=== PATIENT | male | born 1965 | race Caucasian/White ===

== ENCOUNTER 2016-11-22 13:56 | Outpatient (CLI) ==
--- NOTE | 2016-11-22 14:39 | US ---
EXAM: ULTRASOUND LOWER EXTREMITY VENOUS DOPPLER EXAM HISTORY: Left leg swelling. FINDINGS: Left lower extremity venous Doppler exam. Real time melendez-scale, Doppler spectral analysis and color-flow Doppler imaging performed. The veins targeted for evaluation include the common fem oral, greater saphenous, profundus, femoral, popliteal, peroneal, anterior tibial and posterior tibi al. The evaluated veins demonstrated normal spontaneous flow and compression without evidence of t hrombosis. No venous reflux. IMPRESSION: No venous thrombosis identified within the areas evaluated.
== END 2016-11-22 13:57 | disposition home or self-care (01) ==
LOC: RAD 13:56
DX: M79.89 Other specified soft tissue disorders (principal)

== ENCOUNTER 2016-11-27 07:42 | Outpatient (CLI) ==
[2016-11-27 08:11] LABS: CREATININE 1.2 mg/dL (0.60-1.10)
--- NOTE | 2016-11-27 09:14 | CT ---
EXAM: CT abdomen pelvis with and without contrast HISTORY: Edema and intra-abdominal or pelvic swelling COMPARISON: 03/26/2012 TECHNIQUE: CT abdomen pelvis performed with and without intravenous contrast. Coronal and sagittal reformatted images obtained. FINDINGS: There is bibasilar ground-glass that is greatest in the left lower lobe, likely represent ing pneumonitis. Granulomatous calcification lower chest. No free air. No acute abnormalities of the bones. Degenerative change in the spine. The heart normal in size. Sub centimeter hypodensity i n the liver, too small to characterize. Liver otherwise unremarkable. The gallbladder appears norm al. Pancreas appears normal. Granulomatous calcification in the spleen. Spleen otherwise appears normal. Adrenals appear normal. Kidneys appear normal. Bladder unremarkable. Aorta normal in emily iber. Mild atherosclerosis. No lymphadenopathy or ascites. Small fat-containing umbilical hernia. Small moderate right fat-containing inguinal hernia. Prostate normal in size. Stomach appears nor mal. No dilated loops small bowel. Appendix appears normal. Colon unremarkable. No inflammatory stranding identified in the abdomen pelvis. IMPRESSION: 1. No acute inflammatory process identified in the abdomen or pelvis. 2. Bibasilar ground-glass, likely infectious/inflammatory pneumonitis.
== END 2016-11-27 07:43 ==
LOC: RAD 07:42
DX: R60.9 Edema, unspecified (principal); R19.00 Intra-abdominal and pelvic swelling, mass and lump, unspecified site
CPT/HCPCS: 36415; 82565

== ENCOUNTER 2017-05-08 12:55 | Outpatient (CLI) ==
[2017-05-08 13:10] LABS: BASOPHILS # (AUTO) 0.1 K/uL (0-0.2); BASOPHILS % (AUTO) 0.4 % (0.0-3.0); EOSINOPHILS # (AUTO) 0.3 K/ul (0.0-0.7); EOSINOPHILS % (AUTO) 2.2 % (0.0-7.0); HEMATOCRIT 41.2 % (42.0-52.0); HEMOGLOBIN 13.8 g/dl (14.0-18.0); IMMATURE GRANULOCYTE % (AUTO) 0.3 % (0.0-5.0); IMMATURE RETIC FRACTION 13.2; LYMPHOCYTES # (AUTO) 1.7 K/uL (0.60-3.4); LYMPHOCYTES % (AUTO) 12.6 (10.0-50.0); MEAN CORPUSCULAR HEMOGLOBIN 31.8 pg (27.0-31.0); MEAN CORPUSCULAR HGB CONC 33.5 (31.8-35.4); MEAN CORPUSCULAR VOLUME 94.9 fl (80.0-94.0); MONOCYTES % (AUTO) 7.4 (0-10); NEUTROPHILS # (AUTO) 10.4 K/ul (2.0-6.9); NEUTROPHILS % (AUTO) 77.1; PLATELET COUNT 209 10^3/uL (140-440); RED BLOOD COUNT 4.34 10^6/ul (4.70-6.10); RETICULOCYTE % 1.15 %; WHITE BLOOD COUNT 13.45 K/ul (4.2-10.2)
[2017-05-08 13:51] LABS: ANION GAP 16.2; BILIRUBIN,TOTAL 0.35 mg/dL (0.00-1.20); BUN/CREATININE RATIO 12.38; CALCIUM 10.2 mg/dL (8.2-10.2); CHOL/HDL RATIO 5.8 (4.5-6.4); CREATININE 1.13 mg/dL (0.60-1.10); FERRITIN 107.65 ng/mL (21.81-274.66); POTASSIUM 4.2 mmol/L (3.5-5.1)
[2017-05-09 13:13] LABS: TRANSFERRIN 244 mg/dL (200-370)
== END 2017-05-08 12:56 | disposition home or self-care (01) ==
LOC: LAB 12:55
PROVIDERS: ATTEND Nurse Practitioner Family
DX: E75.6 Lipid storage disorder, unspecified (principal); J44.9 Chronic obstructive pulmonary disease, unspecified; Z86.2 Personal history of diseases of the blood and blood-forming organs and certain disorders involving the immune mechanism
CPT/HCPCS: 36415; 80053; 80061; 82607; 82728; 83540; 83550; 84439; 84443; 84466; 85025; 85045

== ENCOUNTER 2017-08-09 13:47 | Outpatient (CLI) | END 2017-08-09 13:48 | disposition home or self-care (01) | LOC: LAB 13:47 | PROVIDERS: ATTEND Nurse Practitioner Family | DX: F31.9 Bipolar disorder, unspecified (principal); F32.9 Major depressive disorder, single episode, unspecified; E75.6 Lipid storage disorder, unspecified | CPT/HCPCS: 36415; 80053; 80061; 85025 ==

== ENCOUNTER 2017-08-10 15:28 | Outpatient (CLI) | END 2017-08-10 15:29 | disposition home or self-care (01) | LOC: FCC-LAB 15:28 | PROVIDERS: ATTEND Nurse Practitioner Family | DX: D64.9 Anemia, unspecified (principal) | CPT/HCPCS: 36415; 82607; 82728; 83540; 83550; 84466; 85045 ==

== ENCOUNTER 2017-09-11 10:08 | Outpatient (CLI) ==
--- NOTE | 2017-09-11 11:59 | DI ---
Exam: Four x-rays of the nasal bone. Comparison: CT brain performed 03/24/2012. Reason for exam: Contusion of nose. FINDINGS: No displaced nasal bone fractures are seen. The orbital rims are intact. There is normal appearing pneumatization of the frontal sinuses. Maxillary sinuses are not well evaluated secondary to summation artifact. The patient is edentulous. Impression: No displaced nasal bone fractures are seen.
--- NOTE | 2017-09-11 12:29 | DI ---
EXAM: Lumbar spine radiographs. HISTORY: Low back pain. COMPARISON: 02/15/2017. TECHNIQUE: 5 views of the lumbar spine. FINDINGS: There is approximately 0.5 cm retrolisthesis of L5 on S1 and anterolisthesis of L4 on L5. Alignment is otherwise normal. Vertebral body heights are maintained. There is moderate loss of di sc height at L4-5. Multilevel endplate osteophyte formation and facet arthropathy present. No fract ure identified. Sacral arcuate lines are intact. Soft tissues are unremarkable save for atheroscler otic calcifications. Since prior study, there has been no significant interval change. IMPRESSION: Stable multilevel degenerative changes, greater in the lower lumbar spine.
== END 2017-09-11 10:09 | disposition home or self-care (01) ==
LOC: RAD 10:08
PROVIDERS: ATTEND Nurse Practitioner Family
DX: R19.7 Diarrhea, unspecified (principal); S00.33XA Contusion of nose, initial encounter; M54.5 Low back pain
CPT/HCPCS: 36415; 80053; 82150; 83690; 85025

== ENCOUNTER 2017-11-27 13:52 | Outpatient (CLI) ==
--- NOTE | 2017-11-27 16:37 | MRI ---
EXAM: MRI lumbar spine without IV contrast. DATE: 27 November 2017. HISTORY: Low back pain. TECHNIQUE: Sagittal and axial T1W and T2W sequences of the lumbar spine along with sagittal IR and c oronal T2W sequences were obtained using 1.2 Farzana magnet. No IV contrast. COMPARISON: LS spine series 09/11/2017. MRI L-spine 01 July 2015. FINDINGS: There are five [id number] lumbar vertebra. Small disc space has formed at S1-2. The re is no lumbar scoliosis. A 4.4 mm anterior subluxation of S1 relative to L5 is noted. No other rosales bluxation, acute fracture, osseous malignancy, or pars interarticularis defect is demonstrated. Lumb ar vertebra are overall normal in height. Prominent osteophytes are present at L4-5. Smaller osteop hytes are revealed at several other levels. Chronic Schmorl's nodes are detected at T11, T12, L1, L2 , and L4. Minor L3-4 and mild L4-5 disc space narrowing is detected. No acute sacral fracture or st ress reaction is identified. SI joints are unremarkable. Conus medullaris terminates at L1-2. Visi ble spinal cord is normal. No retroperitoneal lymphadenopathy, paraspinal mass, or aortic aneurysm is detected. Paraspinal musc ulature is symmetric bilaterally. Visible portions of the liver, spleen, adrenal glands and kidneys reveal no distinct abnormality. Segmental analysis: T11-12: Sagittal images reveal no disc protrusion, cord compression or central stenosis. T12-L1: Minor posterior disc bulge does not cause central stenosis or foraminal stenosis. L1-2: Minor posterior disc bulge (1 mm AP) does not contact the conus. No central canal stenosis or foraminal stenosis. L2-3: Minor bilateral foraminal far lateral disc bulges cause slight bilateral foraminal encroachmen t. No central canal stenosis. L3-4: Minor posterior disc bulge and minor facet arthropathy cause mild central canal stenosis and m inor left foraminal narrowing. L4-5: Moderate concentric disc bulge, mild bilateral facet arthropathy, mild ligamentum flavum hyper trophy, and dorsal epidural fat cause severe central canal stenosis, marked right foraminal stenosis, and moderate left foraminal stenosis. Each L4 nerve root approaches the disc bulge near the lateral margin of the foramen. L5-S1: Mild anterior subluxation of S1, small consent disc bulge, and mild facet arthropathy cause m oderate central canal stenosis, mild right foraminal stenosis, and moderate left foraminal stenosis. Left L5 nerve root contacts the disc bulge near the lateral margin of the foramen. IMPRESSIONS: 1. Lumbar spine mild spondylosis, mild facet arthropathy, L4-5 mild subluxation, and multilevel DDD - - similar to June 2015. 2. Multilevel lumbar foraminal stenoses. Both L4 and left L5 nerve roots contact disc bulges near t he foramen, and may be sources for pain/radiculopathy. 3. Multilevel central canal stenoses (L3-4: Mild. L4-5: Severe. L5-S1: Moderate). 4. T-L-spine small, chronic Schmorl's nodes.
== END 2017-11-27 13:53 | disposition home or self-care (01) ==
LOC: RAD 13:52
PROVIDERS: ATTEND Nurse Practitioner Family
DX: M54.5 Low back pain (principal)